=== PATIENT | female | born 1970 | race American Indian/Alaskan Native ===

== ENCOUNTER 2018-11-09 09:55 | Emergency (ER) | payer SELFPAY ==
[2018-11-09] MEDS ORDERED: ASPIRIN PO ONE (10:23)
[2018-11-09 10:44] LABS: Basophils # (Auto) 0.1 K/mm3 (0.0-0.1); Basophils % (Auto) 1.1 % (0.0-1.8); Eosinophils # (Auto) 0.1 K/mm3 (0.0-0.4); Eosinophils % (Auto) 1.6 % (0.0-4.3); Hematocrit 42.7 % (30.3-42.9); Hemoglobin 14.4 gm/dl (10.1-14.3); Lymphocytes # (Auto) 2.1 K/mm3 (1.2-5.4); Lymphocytes % (Auto) 28.8 % (13.4-35.0); Mean Corpuscular HGB Conc 34 % (30-34); Mean Corpuscular Volume 79 fl (79-97); Monocytes # (Auto) 0.4 K/mm3 (0.0-0.8); Monocytes % (Auto) 4.9 % (0.0-7.3); Platelet Count 195 K/mm3 (140-440); Red Blood Count 5.39 M/mm3 (3.65-5.03); Red Cell Distribution Width 15.3 % (13.2-15.2)
--- NOTE | 2018-11-09 10:57 | XRay Report ---
CHEST 1 VIEW 11/09/2018 10:41 AM INDICATION / CLINICAL INFORMATION: Chest Pain. COMPARISON: None available. FINDINGS: SUPPORT DEVICES: None. HEART / MEDIASTINUM: No significant abnormality. LUNGS / PLEURA: No significant pulmonary or pleural abnormality. No pneumothorax. ADDITIONAL FINDINGS: No significant additional findings. IMPRESSION: 1. No acute findings. Signer Name: Lj Sanchez MD Signed: 11/09/2018 10:53 AM Workstation Name: [id number]
[2018-11-09 11:18] LABS: BUN/Creatinine Ratio 15; Blood Urea Nitrogen 9 mg/dL (7-17); Calcium 10.1 mg/dL (8.4-10.2)
[2018-11-09 11:19] LABS: Hemolysis Index 36
--- NOTE | 2018-11-09 12:16 | Emergency Department Report ---
ED General Adult HPI - General Chief complaint: Chest Pain Stated complaint: CHEST PAIN/LT SIDE NUMB Time Seen by Provider: 11/09/18 11:37 Source: patient Mode of arrival: Ambulatory Limitations: No Limitations - History of Present Illness Initial comments: She presents to the emergency department the chief complaint of left-sided chest pain that started at 3 AM this morning. Patient states the chest pains traveling down the left forearm and feels as if someone is sitting on her chest. Patient denies a history of cardiac issues but states she has stress test 5 years ago and was normal. Patient denies shortness of breath or any recent travel. -: Sudden Location: chest Radiation: extremity Severity scale (0 -10): 5 Quality: dull (pressure like) Consistency: constant Improves with: none Worsens with: none Associated Symptoms: denies other symptoms Treatments Prior to Arrival: none - Related Data Home Medications Medication Instructions Recorded Confirmed Last Taken Insulin Regular, Human [Novolin R] 5 units SUB-Q TID 11/09/18 11/09/18 Unknown Previous Rx's Medication Instructions Recorded Last Taken Type Insulin NPH/Regular [NovoLIN 70/30] 25 unit SUB-Q BIDDIAB #1 vial 05/18/14 11/08/18 Rx Amlodipine Besylate [Norvasc] 5 mg PO DAILY #14 tablet 11/09/18 Unknown Rx Allergies Allergy/AdvReac Type Severity Reaction Status Date / Time No Known Allergies Allergy Verified 06/09/15 16:08 ED Review of Systems ROS: Stated complaint: CHEST PAIN/LT SIDE NUMB Other details as noted in HPI Comment: All other systems reviewed and negative Constitutional: denies: chills, fever Eyes: denies: eye pain, eye discharge, vision change ENT: denies: ear pain, throat pain Respiratory: denies: cough, shortness of breath, wheezing Cardiovascular: chest pain. denies: palpitations Endocrine: no symptoms reported Gastrointestinal: denies: abdominal pain, nausea, diarrhea Genitourinary: denies: urgency, dysuria, discharge Musculoskeletal: denies: back pain, joint swelling, arthralgia Skin: denies: rash, lesions Neurological: denies: headache, weakness, paresthesias Psychiatric: denies: anxiety, depression Hematological/Lymphatic: denies: easy bleeding, easy bruising ED Past Medical Hx - Past Medical History Hx Hypertension: Yes (noncompliant) Hx Congestive Heart Failure: No Hx Diabetes: Yes Hx Liver Disease: No Hx Asthma: No Hx COPD: No Hx HIV: No - Surgical History Additional Surgical History: hysterectomy - Social History Smoking Status: Current Every Day Smoker Substance Use Type: Marijuana - Medications Home Medications: Home Medications Medication Instructions Recorded Confirmed Last Taken Type Insulin NPH/Regular [NovoLIN 70/30] 25 unit SUB-Q BIDDIAB #1 vial 05/18/14 11/09/18 11/08/18 Rx Amlodipine Besylate [Norvasc] 5 mg PO DAILY #14 tablet 11/09/18 Unknown Rx Insulin Regular, Human [Novolin R] 5 units SUB-Q TID 11/09/18 11/09/18 Unknown History ED Physical Exam - General Limitations: No Limitations General appearance: alert, in no apparent distress - Head Head exam: Present: atraumatic, normocephalic - Eye Eye exam: Present: normal appearance, PERRL, EOMI - ENT ENT exam: Present: mucous membranes moist - Neck Neck exam: Present: normal inspection - Respiratory Respiratory exam: Present: normal lung sounds bilaterally. Absent: respiratory distress - Cardiovascular Cardiovascular Exam: Present: regular rate, normal rhythm. Absent: systolic murmur, diastolic murmur, rubs, gallop - GI/Abdominal GI/Abdominal exam: Present: soft, normal bowel sounds. Absent: distended, tenderness - Extremities Exam Extremities exam: Present: normal inspection - Back Exam Back exam: Present: normal inspection - Neurological Exam Neurological exam: Present: alert, oriented X3, CN II-XII intact. Absent: motor sensory deficit - Psychiatric Psychiatric exam: Present: normal affect, normal mood - Skin Skin exam: Present: warm, dry, intact, normal color. Absent: rash ED Course Vital Signs 11/09/18 11/09/18 10:05 14:40 Temperature 98.2 F Pulse Rate 81 106 H Respiratory 18 16 Rate Blood Pressure 167/110 Blood Pressure 150/108 [Left] O2 Sat by Pulse 97 96 Oximetry ED Medical Decision Making - Lab Data Result diagrams: 11/09/18 10:29 11/09/18 10:29 Lab Results 11/09/18 11/09/18 11/09/18 Range/Units 10:29 10:29 14:30 WBC 7.4 (4.5-11.0) K/mm3 RBC 5.39 H (3.65-5.03) M/mm3 Hgb 14.4 H (10.1-14.3) gm/dl Hct 42.7 (30.3-42.9) % MCV 79 (79-97) fl MCH 27 L (28-32) pg MCHC 34 (30-34) % RDW 15.3 H (13.2-15.2) % Plt Count 195 (140-440) K/mm3 Lymph % (Auto) 28.8 (13.4-35.0) % [place] % (Auto) 4.9 (0.0-7.3) % Eos % (Auto) 1.6 (0.0-4.3) % Baso % (Auto) 1.1 (0.0-1.8) % Lymph # 2.1 (1.2-5.4) K/mm3 [place] # 0.4 (0.0-0.8) K/mm3 Eos # 0.1 (0.0-0.4) K/mm3 Baso # 0.1 (0.0-0.1) K/mm3 Seg Neutrophils % 63.6 (40.0-70.0) % Seg Neutrophils # 4.7 (1.8-7.7) K/mm3 Sodium 142 (137-145) mmol/L Potassium 4.2 (3.6-5.0) mmol/L Chloride 104.8 (98-107) mmol/L Carbon Dioxide 26 (22-30) mmol/L Anion Gap 15 mmol/L BUN 9 (7-17) mg/dL Creatinine 0.6 L (0.7-1.2) mg/dL Estimated GFR > 60 ml/min BUN/Creatinine Ratio 15 % Glucose 232 H (65-100) mg/dL Calcium 10.1 (8.4-10.2) mg/dL Troponin T 0.010 < 0.010 (0.00-0.029) ng/mL - EKG Data -: EKG Interpreted by Me EKG shows normal: sinus rhythm Rate: normal - Radiology Data Radiology results: report reviewed - Medical Decision Making Patient has a heart score of 3 Discussed results with patient and she can follow up with cardiology as outpatient Discussed blood pressure control with the patient Patient states she has not taken BP meds for quite some time Critical care attestation.: If time is entered above; I have spent that time in minutes in the direct care of this critically ill patient, excluding procedure time. ED Disposition Clinical Impression: Nonspecific chest pain, Hypertension Disposition: - TO HOME OR SELFCARE Is pt being admited?: No Does the pt Need Aspirin: No Condition: Stable Instructions: Chest Pain (ED), Hypertension (ED) Additional Instructions: return if worse Prescriptions: Amlodipine Besylate [Norvasc] 5 mg PO DAILY #14 tablet Referrals: DESTIN MAHAN MD [Primary Care Provider] - 3-5 Days [facility] [Provider Group] - 3-5 Days [facility] [Provider Group] - 3-5 Days [facility] [Outside] - 3-5 Days [facility] [Provider Group] - 3-5 Days FLORY YEAGER MD [Staff Physician] - 3-5 Days Time of Disposition: 15:32
[2018-11-09] MEDS ORDERED: NITROSTAT SL PRN (12:18)
[2018-11-09 14:47] VITALS: BP 150/108
== END 2018-11-09 15:48 | disposition home or self-care (01) ==
LOC: ED 09:55
DX: R07.89 Other chest pain (principal); I10 Essential (primary) hypertension; Z90.710 Acquired absence of both cervix and uterus; F17.200 Nicotine dependence, unspecified, uncomplicated; F12.10 Cannabis abuse, uncomplicated; Z79.899 Other long term (current) drug therapy
CPT/HCPCS: 36415; 71045; 80048; 84484; 85025; 93005; 93010

== ENCOUNTER 2018-12-31 14:12 | Emergency (ER) | payer SELFPAY ==
--- NOTE | 2018-12-31 14:56 | Emergency Department Report ---
Chief Complaint: Skin Rash Stated Complaint: POSS BED BUG BITES Time Seen by Provider: 12/31/18 14:51 - HPI History of Present Illness: This is a 48 y.o. F. that presents to the ER with pruritic rash to RUE. 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 She took a picture of the bug found on her desk and it appears to be a bedbug. Reports itching and rash to RUE. Reports itching only occur while she is at work. Current smoker PMH of DM2 and HTN Denies difficulty swallowing, swelling, redness, fever, chest pain, palpitations, dizziness, visual changes. - ROS Review of Systems: Constitutional: denies: chills, fever Respiratory: denies: cough, shortness of breath, wheezing Cardiovascular: denies: chest pain, palpitations Gastrointestinal: denies: abdominal pain, nausea, diarrhea Skin: admits: rash. denies: lesions. Neurological: denies: headache, weakness, paresthesias Psychiatric: denies: anxiety, depression - Exam Vital Signs: Vital Signs 12/31/18 14:51 Temperature 99.2 F Pulse Rate 90 Respiratory 20 Rate Blood Pressure 160/106 [Right] O2 Sat by Pulse 95 Oximetry Physical Exam: General appearance: in no apparent distress, lethargic Respiratory exam: Present: normal lung sounds bilaterally. Absent: respiratory distress Cardiovascular Exam: Present: regular rate, normal rhythm. Absent: systolic murmur, diastolic murmur, rubs, gallop GI/Abdominal exam: Present: soft, normal bowel sounds. Absent: distended, tenderness, guarding, rebound Neurological exam: Present: alert, oriented X3, CN II-XII intact. Absent: motor sensory deficit Psychiatric exam: Absent: depressed, flat affect Skin exam: Present: multiple 2-3 mm papules to right lateral humerus, warm, dry, intact, normal color. Absent erythema MSE screening note: Focused history and physical exam performed. Due to findings the following was ordered: ED Medical Decision Making - Medical Decision Making This is a 48-year-old female that presents to the ER with pruritic rash to right lateral upper arm. Patient is stable and was examined by me. There is multiple papules to lateral right humerus, without signs of infection. This rash appear to insect rash. Patient took a picture of the bug on her desk at work which appear to be a bed bug. Started on triamcinolone and pepcid for bed bugs. Blood pressure remains elevated prior to discharge. PMH of HTN and DM2. She is currently taking insulin but discontinued taking HTN medication. Patient is asymptomatic and denies chest pain, SOB, palpations, dizziness, visual changes, or changes in urinary pattern. Given amlodipine 10 mg po while in ER. Started on amlodipine and HCTZ. Referral to [facility] and given a handout with a list of clinics to follow up with for continued care. At time of discharge, the patient does not seem toxic or ill in appearance. No acute signs of distress noted. Patient agrees to discharge treatment plan of care. No further questions noted by the patient. ED Disposition for MSE Clinical Impression: Pruritic rash, Asymptomatic hypertension Bedbug bite Qualifiers: Encounter type: initial encounter Qualified Code(s): W57.XXXA - Bitten or stung by nonvenomous insect and other nonvenomous arthropods, initial encounter Disposition: - TO HOME OR SELFCARE Is pt being admited?: No Does the pt Need Aspirin: No Condition: Stable Instructions: Insect Bite or Sting (ED), Hypertension (ED) Additional Instructions: Take medication daily for high blood pressure and follow up with a primary care doctor from the referrals list below. Prescriptions: hydroCHLOROthiazide [HCTZ] 12.5 mg PO QDAY #30 capsule Amlodipine Besylate [Norvasc] 5 mg PO DAILY #30 tablet Famotidine [Pepcid] 40 mg PO DAILY #30 tablet Triamcinolone Acetonide [Triamcinolone 0.1% LOTION] 60 ml TP BID #1 lotion Referrals: [facility] [Outside] - 3-5 Days [facility] [Outside] - 3-5 Days [facility] [Outside] - 3-5 Days Forms: Work/School Release Form(ED) Time of Disposition: 16:24
[2018-12-31] MEDS ORDERED: amLODIPine 5 MG TAB PO ONE (14:58)
[2018-12-31 16:21] VITALS: BP 167/103
== END 2018-12-31 16:25 | disposition home or self-care (01) ==
LOC: ED 14:12
DX: S40.861A Insect bite (nonvenomous) of right upper arm, initial encounter (principal); I10 Essential (primary) hypertension; W57.XXXA Bitten or stung by nonvenomous insect and other nonvenomous arthropods, initial encounter; Y93.89 Activity, other specified; Y92.89 Other specified places as the place of occurrence of the external cause; Y99.8 Other external cause status
CPT/HCPCS: 99282

== ENCOUNTER 2019-05-10 11:02 | Emergency (ER) | payer SELFPAY ==
[2019-05-10] MEDS ORDERED: oxyCODONE /ACETAMINOPHEN 5-325MG TAB PO ONE (11:39)
--- NOTE | 2019-05-10 11:40 | Emergency Department Report ---
Chief Complaint: Back Pain/Injury Stated Complaint: (R) SIDE/LOWER BACK PAIN Time Seen by Provider: 05/10/19 11:39 - HPI History of Present Illness: 48 y/o fem p/w r flank pain r cva tenderness, history of "bacterial infection" stone vs pyelo vs both labs ua ct a/p ekg pain meds reassess Vital Signs 05/10/19 11:36 Temperature 98.2 F Pulse Rate 88 Respiratory 18 Rate Blood Pressure 176/114 O2 Sat by Pulse 99 Oximetry - Exam Vital Signs: Vital Signs 05/10/19 11:36 Temperature 98.2 F Pulse Rate 88 Respiratory 18 Rate Blood Pressure 176/114 O2 Sat by Pulse 99 Oximetry MSE screening note: Focused history and physical exam performed. Due to findings the following was ordered: ED Medical Decision Making - Lab Data Result diagrams: 05/10/19 13:37 05/10/19 13:37 ED Disposition for MSE Condition: Stable
--- NOTE | 2019-05-10 13:10 | Cat Scan Report ---
CT abdomen pelvis wo con INDICATION: right sided flank pain. TECHNIQUE: All CT scans at this location are performed using the following dose modulation technique: Automated exposure control. CONTRAST: None. COMPARISON: CT abdomen and pelvis 02/17/2015. CT ABDOMEN: Small nodules remain at the lung bases greatest the right middle lobe with the largest no dule measures 7.5 mm. Underlying mosaic attenuation is again noted. Evaluation of the parenchymal organs demonstrates no significant change in a low density lesion at th e posterior segment of the right hepatic lobe. The remaining parenchymal organs are unremarkable. Sev eral fat-containing ventral hernias are again seen at and above the umbilicus just to the left of mid line. These are mildly increased in size. CT PELVIS: Negative for pelvic mass, fluid or inflammation. A normal appendix is identified. IMPRESSION: 1. Negative for obstruction or localized inflammation. 2. Increasing fat-containing ventral hernias. 3. Stable small lung nodules typical of a benign process. 4. Mosaic attenuation at the lung bases likely on the basis of air trapping. Signer Name: Ritchie Onofre MD Signed: 05/10/2019 1:05 PM Workstation Name: [id number]
[2019-05-10 13:32] LABS: Bacteria,Urine 1+ /HPF (Negative); Bilirubin,Urine NEG (Negative); Blood,Urine SM (Negative); Color,Urine Yellow (Yellow); Mucus,Urine 1+ /HPF; Protein,Urine <15 mg/dL mg/dL (Negative)
[2019-05-10 14:25] LABS: Hematocrit 46.1 % (30.3-42.9); Hemoglobin 15.3 gm/dl (10.1-14.3); Mean Corpuscular HGB Conc 33 % (30-34); Mean Corpuscular Volume 79 fl (79-97); Red Cell Distribution Width 15.7 % (13.2-15.2)
[2019-05-10 14:35] LABS: INR 0.94 (0.87-1.13)
[2019-05-10 14:40] LABS: Platelet Count 205 K/mm3 (140-440)
[2019-05-10 14:49] LABS: Alanine Aminotransferase 19 units/L (7-56); Albumin 4.2 g/dL (3.9-5); BUN/Creatinine Ratio 17; Blood Urea Nitrogen 10 mg/dL (7-17); Calcium 10.5 mg/dL (8.4-10.2); Hemolysis Index 21
[2019-05-10] MEDS ORDERED: oxyCODONE /ACETAMINOPHEN 5-325MG TAB ONE (18:03)
--- NOTE | 2019-05-10 19:45 | Emergency Department Report ---
ED Abdominal Pain HPI - General Chief Complaint: Back Pain/Injury Stated Complaint: (R) SIDE/LOWER BACK PAIN Time Seen by Provider: 05/10/19 11:39 Source: patient Mode of arrival: Ambulatory Limitations: No Limitations - History of Present Illness Complaint: abdominal pain Onset/Timin -: week(s) Location: RUQ Radiation: R flank Severity scale (0 -10): 8 Quality: stabbing Consistency: intermittent Improves With: nothing Worsens With: nothing Associated Symptoms: denies other symptoms - Related Data Home Medications Medication Instructions Recorded Confirmed Last Taken Insulin Regular, Human [Novolin R] 5 units SUB-Q TID 11/09/18 11/09/18 Unknown Previous Rx's Medication Instructions Recorded Last Taken Type Insulin NPH/Regular [NovoLIN 70/30] 25 unit SUB-Q BIDDIAB #1 vial 05/18/14 11/08/18 Rx Amlodipine Besylate [Norvasc] 5 mg PO DAILY #14 tablet 11/09/18 Unknown Rx Famotidine [Pepcid] 40 mg PO DAILY #30 tablet 12/31/18 Unknown Rx Triamcinolone Acetonide 60 ml TP BID #1 lotion 12/31/18 Unknown Rx [Triamcinolone 0.1% LOTION] hydroCHLOROthiazide [HCTZ] 12.5 mg PO QDAY #30 capsule 12/31/18 Unknown Rx Amlodipine Besylate [Norvasc] 5 mg PO DAILY #30 tablet 05/10/19 Unknown Rx Sulfamethoxazole/Trimethoprim 1 each PO BID #6 tablet 05/10/19 Unknown Rx [Bactrim DS TAB] Allergies Allergy/AdvReac Type Severity Reaction Status Date / Time No Known Allergies Allergy Verified 12/31/18 14:53 ED Review of Systems ROS: Stated complaint: (R) SIDE/LOWER BACK PAIN Other details as noted in HPI ED Past Medical Hx - Past Medical History Previous Medical History?: Yes Hx Hypertension: Yes (noncompliant) Hx Congestive Heart Failure: No Hx Diabetes: Yes Hx Liver Disease: No Hx Asthma: No Hx COPD: No Hx HIV: No - Surgical History Past Surgical History?: Yes Additional Surgical History: hysterectomy - Social History Smoking Status: Current Every Day Smoker Substance Use Type: Alcohol, Marijuana - Medications Home Medications: Home Medications Medication Instructions Recorded Confirmed Last Taken Type Insulin NPH/Regular [NovoLIN 70/30] 25 unit SUB-Q BIDDIAB #1 vial 05/18/14 11/09/18 11/08/18 Rx Amlodipine Besylate [Norvasc] 5 mg PO DAILY #14 tablet 11/09/18 Unknown Rx Insulin Regular, Human [Novolin R] 5 units SUB-Q TID 11/09/18 11/09/18 Unknown History Famotidine [Pepcid] 40 mg PO DAILY #30 tablet 12/31/18 Unknown Rx Triamcinolone Acetonide 60 ml TP BID #1 lotion 12/31/18 Unknown Rx [Triamcinolone 0.1% LOTION] hydroCHLOROthiazide [HCTZ] 12.5 mg PO QDAY #30 capsule 12/31/18 Unknown Rx Amlodipine Besylate [Norvasc] 5 mg PO DAILY #30 tablet 05/10/19 Unknown Rx Sulfamethoxazole/Trimethoprim 1 each PO BID #6 tablet 05/10/19 Unknown Rx [Bactrim DS TAB] ED Physical Exam - General Limitations: No Limitations ED Course Vital Signs 05/10/19 05/10/19 11:36 19:52 Temperature 98.2 F Pulse Rate 88 74 Respiratory 18 20 Rate Blood Pressure 176/114 Blood Pressure 153/97 [Right] O2 Sat by Pulse 99 100 Oximetry ED Medical Decision Making - Lab Data Result diagrams: 05/10/19 13:37 05/10/19 13:37 - Radiology Data Radiology results: report reviewed CT abdomen pelvis wo con INDICATION: right sided flank pain. TECHNIQUE: All CT scans at this location are performed using the following dose modulation technique: Automated exposure control. CONTRAST: None. COMPARISON: CT abdomen and pelvis 02/17/2015. CT ABDOMEN: Small nodules remain at the lung bases greatest the right middle lobe with the largest nodule measures 7.5 mm. Underlying mosaic attenuation is again noted. Evaluation of the parenchymal organs demonstrates no significant change in a low density lesion at the posterior segment of the right hepatic lobe. The remaining parenchymal organs are unremarkable. Several fat-containing ventral hernias are again seen at and above the umbilicus just to the left of midline. These are mildly increased in size. CT PELVIS: Negative for pelvic mass, fluid or inflammation. A normal appendix is identified. IMPRESSION: 1. Negative for obstruction or localized inflammation. 2. Increasing fat-containing ventral hernias. 3. Stable small lung nodules typical of a benign process. 4. Mosaic attenuation at the lung bases likely on the basis of air trapping. - Medical Decision Making 1. Negative for obstruction or localized inflammation. 2. Increasing fat- containing ventral hernias. 3. Stable small lung nodules typical of a benign process. 4. Mosaic attenuation at the lung bases likely on the basis of air trapping. Critical care attestation.: If time is entered above; I have spent that time in minutes in the direct care of this critically ill patient, excluding procedure time. ED Disposition Clinical Impression: Acute right flank pain UTI (urinary tract infection) Qualifiers: Urinary tract infection type: acute cystitis Hematuria presence: with hematuria Qualified Code(s): N30.01 - Acute cystitis with hematuria Abdominal pain Qualifiers: Abdominal location: left upper quadrant Qualified Code(s): R10.12 - Left upper quadrant pain Disposition: TO HOME OR SELFCARE Is pt being admited?: No Condition: Stable Instructions: Urinary Tract Infection in Women (ED), Acute Abdominal Pain (ED) Additional Instructions: Increase fluid intake to 1L-2L every day. Please for course of antibiotics as prescribed. Follow up with primary care doctor from the list provided below. I have also provided a offset press assistant for you to follow-up with to manage your hernia. Prescriptions: Sulfamethoxazole/Trimethoprim [Bactrim DS TAB] 1 each PO BID #6 tablet Amlodipine Besylate [Norvasc] 5 mg PO DAILY #30 tablet Referrals: [facility] [Outside] - 3-5 Days [facility] [Outside] - 3-5 Days [facility] [Outside] - 3-5 Days Forms: Work/School Release Form(ED) Time of Disposition: 19:48
[2019-05-10 19:56] VITALS: BP 153/97
== END 2019-05-10 20:10 | disposition home or self-care (01) ==
LOC: ED 11:02
DX: N39.0 Urinary tract infection, site not specified (principal); I10 Essential (primary) hypertension; E11.9 Type 2 diabetes mellitus without complications; F17.200 Nicotine dependence, unspecified, uncomplicated; F12.10 Cannabis abuse, uncomplicated; Z90.710 Acquired absence of both cervix and uterus; Z79.899 Other long term (current) drug therapy
CPT/HCPCS: 36415; 74176; 80053; 81001; 82550; 83690; 83735; 85027; 85610; 87076; 87086; 87186

== ENCOUNTER 2019-06-01 12:04 | Emergency (ER) | payer OTHER ==
[2019-06-01 12:32] VITALS: BP 163/103
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
== END 2019-06-01 13:32 | disposition home or self-care (01) ==
LOC: ED 12:04
DX: M25.561 Pain in right knee (principal); V49.49XA Driver injured in collision with other motor vehicles in traffic accident, initial encounter; Y93.89 Activity, other specified; Y92.410 Unspecified street and highway as the place of occurrence of the external cause; Y99.8 Other external cause status
CPT/HCPCS: 99282

== ENCOUNTER 2020-09-04 12:04 | Emergency (ER) | payer SELFPAY ==
[2020-09-04 12:38] VITALS: BP 172/111
--- NOTE | 2020-09-04 17:53 | Emergency Department Report ---
ED General Adult HPI - General Chief complaint: Sore Throat Stated complaint: SORE THROAT, RIGHT EAR PAIN Time Seen by Provider: 09/04/20 17:46 Source: patient Mode of arrival: Ambulatory Limitations: No Limitations - History of Present Illness Initial comments: 50-year-old female patient with history of diabetes and hypertension presents to the emergency department with complaints of sore throat for 1 week and right ear pain for 2 days. Patient's grandchild has recently been exhibiting similar symptoms. No current steroid or antibiotic use. Took Tylenol and Motrin with limited relief. Denies fever, neck stiffness, rash, shortness of breath, vomiting, hoarseness, cough. Denies all other complaints at this time. Severity scale (0 -10): 10 - Related Data Home Medications Medication Instructions Recorded Confirmed Last Taken Insulin Regular, Human [Novolin R] 5 units SUB-Q TID 11/09/18 11/09/18 Unknown Previous Rx's Medication Instructions Recorded Last Taken Type Insulin NPH/Regular [NovoLIN 70/30] 25 unit SUB-Q BIDDIAB #1 vial 05/18/14 11/08/18 Rx Amlodipine Besylate [Norvasc] 5 mg PO DAILY #14 tablet 11/09/18 Unknown Rx Famotidine [Pepcid] 40 mg PO DAILY #30 tablet 12/31/18 Unknown Rx Triamcinolone Acetonide 60 ml TP BID #1 lotion 12/31/18 Unknown Rx [Triamcinolone 0.1% LOTION] hydroCHLOROthiazide [HCTZ] 12.5 mg PO QDAY #30 capsule 12/31/18 Unknown Rx Amlodipine Besylate [Norvasc] 5 mg PO DAILY #30 tablet 05/10/19 Unknown Rx Sulfamethoxazole/Trimethoprim 1 each PO BID #6 tablet 05/10/19 Unknown Rx [Bactrim DS TAB] Naproxen 250 mg PO BID #20 tablet 09/04/20 Unknown Rx Nystas/Diphen/Xyl Visc/Mylanta 30 ml MM Q4H PRN #1 bottle 09/04/20 Unknown Rx [Magic Mouthwash] Allergies Allergy/AdvReac Type Severity Reaction Status Date / Time No Known Allergies Allergy Verified 06/01/19 12:12 ED Review of Systems ROS: Stated complaint: SORE THROAT, RIGHT EAR PAIN Other details as noted in HPI Other: GENERAL: Negative for fever. ENT: Positive for sore throat and ear pain. CARDIOVASCULAR: Negative for chest pain. PULMONARY: Negative for shortness of breath. GASTROINTESTINAL: Negative for abdominal pain. MUSCULOSKELETAL: Negative for back pain. NEUROLOGICAL: Negative for headache. INTEGUMENTARY: Negative for rash. ED Past Medical Hx - Past Medical History Previous Medical History?: Yes Hx Hypertension: Yes (noncompliant) Hx Congestive Heart Failure: No Hx Diabetes: Yes Hx Liver Disease: No Hx Asthma: No Hx COPD: No Hx HIV: No - Surgical History Past Surgical History?: Yes Additional Surgical History: hysterectomy - Social History Smoking Status: Current Every Day Smoker Substance Use Type: Alcohol, Marijuana - Medications Home Medications: Home Medications Medication Instructions Recorded Confirmed Last Taken Type Insulin NPH/Regular [NovoLIN 70/30] 25 unit SUB-Q BIDDIAB #1 vial 05/18/14 11/09/18 11/08/18 Rx Amlodipine Besylate [Norvasc] 5 mg PO DAILY #14 tablet 11/09/18 Unknown Rx Insulin Regular, Human [Novolin R] 5 units SUB-Q TID 11/09/18 11/09/18 Unknown History Famotidine [Pepcid] 40 mg PO DAILY #30 tablet 12/31/18 Unknown Rx Triamcinolone Acetonide 60 ml TP BID #1 lotion 12/31/18 Unknown Rx [Triamcinolone 0.1% LOTION] hydroCHLOROthiazide [HCTZ] 12.5 mg PO QDAY #30 capsule 12/31/18 Unknown Rx Amlodipine Besylate [Norvasc] 5 mg PO DAILY #30 tablet 05/10/19 Unknown Rx Sulfamethoxazole/Trimethoprim 1 each PO BID #6 tablet 05/10/19 Unknown Rx [Bactrim DS TAB] Naproxen 250 mg PO BID #20 tablet 09/04/20 Unknown Rx Nystas/Diphen/Xyl Visc/Mylanta 30 ml MM Q4H PRN #1 bottle 09/04/20 Unknown Rx [Magic Mouthwash] ED Physical Exam - General Limitations: No Limitations - Other Other exam information: General: Awake, appropriately interactive, no acute distress. ENT: Oral mucosa is moist. Normal otoscopic exam. Mild pharyngeal erythema and tonsillar swelling. Uvula is midline and nonedematous. Neck: Supple. Full range of motion intact. Diffuse tenderness along the distribution of the anterior cervical lymph nodes. Cardiovascular: Normal peripheral perfusion. Pulmonary: No respiratory distress. Patient is speaking normally without use of accessory muscles. Skin: No apparent rashes or lesions. Neurological: No facial asymmetry. Speech is clear. Follows commands. Patient is alert and oriented. Musculoskeletal: Moves all four extremities spontaneously with normal range of m otion. Psych: Cooperative. Appropriate mood and affect. ED Course Vital Signs 09/04/20 12:36 Temperature 98.4 F Pulse Rate 71 Respiratory 18 Rate Blood Pressure 172/111 [Right] O2 Sat by Pulse 98 Oximetry ED Medical Decision Making - Medical Decision Making Differential diagnosis including but not limited to: strep pharyngitis, viral pharyngitis, peritonsillar abscess, epiglottitis, Mauro's angina, mononucleosis, otitis media, allergic rhinitis On reevaluation, patient remains stable. No hypoxia, no respiratory distress, handling secretions without difficulty. Rapid strep test is negative. Confirmatory culture is pending. History and exam findings suggestive of viral pharyngitis. No clinical evidence to suggest airway obstruction or systemic bacterial infection warranting further diagnostic work-up on an emergent basis at this time. Patient does not meet criteria for empiric antibiotics per current IDSA guidelines. Patient will be discharged home with appropriate symptomatic treatment and referred to primary care provider for close outpatient follow-up. Patient expressed understanding and is agreeable to plan of care. Disease transmission precautions discussed. Strict return precautions provided. Of note, patient's blood pressure was noted to be elevated in the emergency department. Patient reports prior history of hypertension. Specifically denies chest pain, shortness of breath, palpitations, syncope, headache, vision changes. Neurological exam is nonfocal and remainder of vital signs are stable. No clinical indication for further diagnostic work-up and/or initiation of antihypertensive therapy at this time per ACEP asymptomatic hypertension guidelines. Patient was encouraged to follow-up with primary care provider for blood pressure recheck. Lifestyle modifications recommended. Repeat exam is unremarkable and benign. History, exam, diagnostic testing, and current condition do not suggest worrisome pathology to warrant further testing, continued ED treatment, admission, or surgical evaluation at this point. Given the low probability of a significant medical illness, it would be more likely to result in harm than benefit to perform further testing at this stage. Discussed findings, presumptive diagnosis, need for follow-up and specific signs/symptoms that should prompt immediate return to the emergency department. Instructions were explained in detail to the patient in addition to giving written discharge information. Patient expressed understanding and was given the opportunity to ask questions, all of which were satisfactorily answered prior to discharge home. Critical care attestation.: If time is entered above; I have spent that time in minutes in the direct care of this critically ill patient, excluding procedure time. ED Disposition Clinical Impression: History of hypertension Pharyngitis Qualifiers: Pharyngitis/tonsillitis etiology: unspecified etiology Qualified Code(s): J02.9 - Acute pharyngitis, unspecified Disposition: DC- TO HOME OR SELFCARE Is pt being admited?: No Does the pt Need Aspirin: No Condition: Stable Instructions: Sore Throat, [id number] Additional Instructions: Take Tylenol every 4 hours as needed for pain. Take Naprosyn twice daily with food as needed for pain. Use Magic Mouthwash as needed for pain. Use Cepacol lozenges and salt water gargles as needed for pain. Rest. Drink plenty fluids. Wash hands frequently to prevent disease transmission. Do not share food or drinks with others. Reduce your dietary sodium intake. Exercise daily. Follow-up with your primary care provider this week. Call tomorrow to schedule an appointment. Return to the emergency department immediately for new or worsening symptoms. Prescriptions: Nystas/Diphen/Xyl Visc/Mylanta [Magic Mouthwash] 30 ml MM Q4H PRN #1 bottle PRN Reason: Sore Throat Naproxen 250 mg PO BID #20 tablet Referrals: [facility] [Provider Group] - 3-5 Days Time of Disposition: 18:24
== END 2020-09-04 18:29 | disposition home or self-care (01) ==
LOC: ED 12:04
DX: J20.9 Acute bronchitis, unspecified (principal); H92.01 Otalgia, right ear; I10 Essential (primary) hypertension; E11.9 Type 2 diabetes mellitus without complications; F17.200 Nicotine dependence, unspecified, uncomplicated; F12.90 Cannabis use, unspecified, uncomplicated; Z90.710 Acquired absence of both cervix and uterus; Z72.89 Other problems related to lifestyle; Z79.899 Other long term (current) drug therapy
CPT/HCPCS: 87116; 87430; 99283

== ENCOUNTER 2020-10-21 05:33 | Emergency (ER) | payer SELFPAY ==
[2020-10-21] MEDS ORDERED: HYDROcodone/ACETAMINOPHEN 7.5-325MG TAB PO ONE (09:02)
--- NOTE | 2020-10-21 09:05 | Emergency Department Report ---
ED ENT HPI - General Chief complaint: Sore Throat Stated complaint: EAR PAINS SORE THROAT Time Seen by Provider: 10/21/20 08:18 Source: patient Mode of arrival: Ambulatory Limitations: No Limitations - History of Present Illness Initial comments: 50-year-old -Faro[place] female with a current history of hypertension and diabetes and is noncompliant on her blood pressure medication secondary to having no insurance. Patient presents today for 8-day history of sore throat that feels like she is swallowing glass. Patient states that she was seen here for the same problem back in September and was prescribed naproxen and Magic mouthwash. Patient states that it did resolve but came back 3 days later. Patient denies any fever no chills. Patient denies any chest pain shortness of breathing diaphoresis swelling of her lower extremities. MD complaint: sore throat Onset/Timin -: week(s) Location: R ear, throat Severity: severe Severity scale (0 -10): 9 Quality: burning, stabbing, sharp Consistency: constant Improves with: none Worsens with: swallowing Associated Symptoms: pain with swallowing, sore throat. denies: fever, cough, gum swelling, toothache, tinnitus, hearing loss, discharge from ear, rhinorrhea - Related Data Home Medications Medication Instructions Recorded Confirmed Last Taken Insulin Regular, Human [Novolin R] 5 units SUB-Q TID 11/09/18 11/09/18 Unknown Previous Rx's Medication Instructions Recorded Last Taken Type Insulin NPH/Regular [NovoLIN 70/30] 25 unit SUB-Q BIDDIAB #1 vial 05/18/14 11/08/18 Rx Amlodipine Besylate [Norvasc] 5 mg PO DAILY #14 tablet 11/09/18 Unknown Rx Famotidine [Pepcid] 40 mg PO DAILY #30 tablet 12/31/18 Unknown Rx Triamcinolone Acetonide 60 ml TP BID #1 lotion 12/31/18 Unknown Rx [Triamcinolone 0.1% LOTION] hydroCHLOROthiazide [HCTZ] 12.5 mg PO QDAY #30 capsule 12/31/18 Unknown Rx Sulfamethoxazole/Trimethoprim 1 each PO BID #6 tablet 05/10/19 Unknown Rx [Bactrim DS TAB] Naproxen 250 mg PO BID #20 tablet 09/04/20 Unknown Rx Nystas/Diphen/Xyl Visc/Mylanta 30 ml MM Q4H PRN #1 bottle 09/04/20 Unknown Rx [Magic Mouthwash] Azithromycin [Zithromax Z-SUSANA] 250 mg PO DAILY #6 tab 10/21/20 Unknown Rx Ibuprofen [Motrin 800 MG tab] 800 mg PO Q8HR PRN #30 tablet 10/21/20 Unknown Rx amLODIPine 10 mg PO DAILY #30 tab 10/21/20 Unknown Rx Allergies Allergy/AdvReac Type Severity Reaction Status Date / Time No Known Allergies Allergy Verified 06/01/19 12:12 ED Dental HPI - General Chief complaint: Sore Throat Stated complaint: EAR PAINS SORE THROAT Time Seen by Provider: 10/21/20 08:18 Source: patient Mode of arrival: Ambulatory Limitations: No Limitations - Related Data Home Medications Medication Instructions Recorded Confirmed Last Taken Insulin Regular, Human [Novolin R] 5 units SUB-Q TID 11/09/18 11/09/18 Unknown Previous Rx's Medication Instructions Recorded Last Taken Type Insulin NPH/Regular [NovoLIN 70/30] 25 unit SUB-Q BIDDIAB #1 vial 05/18/14 11/08/18 Rx Amlodipine Besylate [Norvasc] 5 mg PO DAILY #14 tablet 11/09/18 Unknown Rx Famotidine [Pepcid] 40 mg PO DAILY #30 tablet 12/31/18 Unknown Rx Triamcinolone Acetonide 60 ml TP BID #1 lotion 12/31/18 Unknown Rx [Triamcinolone 0.1% LOTION] hydroCHLOROthiazide [HCTZ] 12.5 mg PO QDAY #30 capsule 12/31/18 Unknown Rx Sulfamethoxazole/Trimethoprim 1 each PO BID #6 tablet 05/10/19 Unknown Rx [Bactrim DS TAB] Naproxen 250 mg PO BID #20 tablet 09/04/20 Unknown Rx Nystas/Diphen/Xyl Visc/Mylanta 30 ml MM Q4H PRN #1 bottle 09/04/20 Unknown Rx [Magic Mouthwash] Azithromycin [Zithromax Z-SUSANA] 250 mg PO DAILY #6 tab 10/21/20 Unknown Rx Ibuprofen [Motrin 800 MG tab] 800 mg PO Q8HR PRN #30 tablet 10/21/20 Unknown Rx amLODIPine 10 mg PO DAILY #30 tab 10/21/20 Unknown Rx Allergies Allergy/AdvReac Type Severity Reaction Status Date / Time No Known Allergies Allergy Verified 06/01/19 12:12 ED Review of Systems ROS: Stated complaint: EAR PAINS SORE THROAT Other details as noted in HPI Comment: All other systems reviewed and negative ED Past Medical Hx - Past Medical History Hx Hypertension: Yes (noncompliant) Hx Congestive Heart Failure: No Hx Diabetes: Yes Hx Liver Disease: No Hx Asthma: No Hx COPD: No Hx HIV: No - Surgical History Additional Surgical History: hysterectomy - Social History Smoking Status: Current Every Day Smoker - Medications Home Medications: Home Medications Medication Instructions Recorded Confirmed Last Taken Type Insulin NPH/Regular [NovoLIN 70/30] 25 unit SUB-Q BIDDIAB #1 vial 05/18/14 11/09/18 11/08/18 Rx Amlodipine Besylate [Norvasc] 5 mg PO DAILY #14 tablet 11/09/18 Unknown Rx Insulin Regular, Human [Novolin R] 5 units SUB-Q TID 11/09/18 11/09/18 Unknown History Famotidine [Pepcid] 40 mg PO DAILY #30 tablet 12/31/18 Unknown Rx Triamcinolone Acetonide 60 ml TP BID #1 lotion 12/31/18 Unknown Rx [Triamcinolone 0.1% LOTION] hydroCHLOROthiazide [HCTZ] 12.5 mg PO QDAY #30 capsule 12/31/18 Unknown Rx Sulfamethoxazole/Trimethoprim 1 each PO BID #6 tablet 05/10/19 Unknown Rx [Bactrim DS TAB] Naproxen 250 mg PO BID #20 tablet 09/04/20 Unknown Rx Nystas/Diphen/Xyl Visc/Mylanta 30 ml MM Q4H PRN #1 bottle 09/04/20 Unknown Rx [Magic Mouthwash] Azithromycin [Zithromax Z-SUSANA] 250 mg PO DAILY #6 tab 10/21/20 Unknown Rx Ibuprofen [Motrin 800 MG tab] 800 mg PO Q8HR PRN #30 tablet 10/21/20 Unknown Rx amLODIPine 10 mg PO DAILY #30 tab 10/21/20 Unknown Rx ED Physical Exam - General Limitations: No Limitations General appearance: alert, in no apparent distress - Head Head exam: Present: atraumatic, normocephalic - Eye Eye exam: Present: normal appearance - Expanded ENT Exam Expanded TM/Canal exam: Perforation: Left TM (Blood in the canal that is dry) Mouth exam: Present: normal external inspection Throat exam: Positive: tonsillar erythema, tonsillomegaly. Negative: tonsillar exudate - Neck Neck exam: Present: tenderness, full ROM, lymphadenopathy - Respiratory Respiratory exam: Present: normal lung sounds bilaterally. Absent: chest wall tenderness - Cardiovascular Cardiovascular Exam: Present: regular rate - Extremities Exam Extremities exam: Present: normal inspection, full ROM - Back Exam Back exam: Present: normal inspection - Neurological Exam Neurological exam: Present: alert, oriented X3 - Psychiatric Psychiatric exam: Present: normal affect, normal mood - Skin Skin exam: Present: warm, dry, intact, normal color. Absent: rash ED Course Vital Signs 10/21/20 05:56 Temperature 98.7 F Pulse Rate 83 Respiratory 16 Rate Blood Pressure 174/116 O2 Sat by Pulse 91 Oximetry ED Medical Decision Making - Medical Decision Making 50-year-old -[place]aro[place] female with a current history of hypertension and diabetes and is noncompliant on her blood pressure medication secondary to having no insurance. Patient presents today for 8-day history of sore throat that feels like she is swallowing glass. Patient states that she was seen here for the same problem back in September and was prescribed naproxen and Magic mouthwash. Patient states that it did resolve but came back 3 days later. Patient denies any fever no chills. Patient denies any chest pain shortness of breathing diaphoresis swelling of her lower extremities. Review of patient's chart shows that she had a negative group A strep test on September 04, 2020. At that time the provider placed her on Magic mouthwash and naproxen. Patient returns back with worsening sore throat and swelling. At this time provider given her Manter for pain management while in fast track. Patient be discharged home on a azithromycin and ibuprofen. Patient is encouraged to increase her fluid intake advance her diet as tolerated. It was noted that patient has asymptomatic hypertension that she used to be on amlodipine. This provider refilled her amlodipine 10 mg daily referral to her primary care provider. Critical care attestation.: If time is entered above; I have spent that time in minutes in the direct care of this critically ill patient, excluding procedure time. ED Disposition Clinical Impression: Pharyngitis, HTN (hypertension) Disposition: TO HOME OR SELFCARE Is pt being admited?: No Does the pt Need Aspirin: No Condition: Stable Instructions: Hypertension (ED), Pharyngitis, [id number] Additional Instructions: Complete antibiotics as prescribed. Pain medication as needed. Follow-up with your primary care provider. I have refilled your amlodipine. Is important you follow-up with a primary care for chronic disease management. Prescriptions: amLODIPine 10 mg PO DAILY #30 tab Ibuprofen [Motrin 800 MG tab] 800 mg PO Q8HR PRN #30 tablet PRN Reason: Pain , Severe (7-10) Azithromycin [Zithromax Z-SUSANA] 250 mg PO DAILY #6 tab Referrals: PRIMARY CARE, [Primary Care Provider] - 3-5 Days [facility] [Provider Group] - 3-5 Days Forms: Work/School Release Form(ED) Time of Disposition: 09:15
[2020-10-21] MEDS ORDERED: amLODIPine 5 MG TAB PO ONE (09:12)
[2020-10-21 09:28] VITALS: BP 190/102
== END 2020-10-21 09:40 | disposition home or self-care (01) ==
LOC: ED 05:33
DX: J02.9 Acute pharyngitis, unspecified (principal); I10 Essential (primary) hypertension; E11.9 Type 2 diabetes mellitus without complications; F17.200 Nicotine dependence, unspecified, uncomplicated; Z90.710 Acquired absence of both cervix and uterus; Z79.899 Other long term (current) drug therapy
CPT/HCPCS: 99282